=== PATIENT | female | born 1995 | race Caucasian/White ===

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

== ENCOUNTER 2017-04-08 14:20 | Emergency (ER) | payer OTHER ==
[~2017-04-08] VITALS: Ht 170.1 cm; Wt 63.5 kg
[2017-04-08 14:46] LABS: BILIRUBIN NEGATIVE (NEGATIVE); BLOOD 1+ (NEGATIVE); CLARITY SL CLOUDY (CLEAR); COLOR YELLOW (YELLOW); GLUCOSE NEGATIVE (NEGATIVE); KETONE NEGATIVE (NEGATIVE); LEUKO ESTERASE 1+ (NEGATIVE); NITRITE POSITIVE (NEGATIVE); PROTEIN TRACE (NEGATIVE)
[2017-04-08 14:58] LABS: WBC 31-40 wbc/hpf (0-5)
[2017-04-08 14:59] LABS: BACTERIA 2+; URINE REFLEX COMMENT YES (NO)
[2017-04-08] MEDS ORDERED: PYRIDIUM100 MG PO (15:01)
[2017-04-08] MEDS ORDERED: MACROBID100 M1 PO (15:01)
== END 2017-04-08 15:15 | disposition home or self-care (01) ==
LOC: ED 14:20
PROVIDERS: Physician Assistant
DX: N30.01 Acute cystitis with hematuria (principal); F17.200 Nicotine dependence, unspecified, uncomplicated

== ENCOUNTER → 2017-04-22 | Day surgery (SDC) | payer OTHER ==
[2017-04-19 12:01] LABS: BASO % 0.3 % (0.0-1.0); EOS % 0.3 % (1.0-4.0); HEMATOCRIT 41.5 % (37.0-47.0); HEMOGLOBIN 13.6 g/dl (12.0-16.0); IG # 0.1 10*3/uL (0.0-0.1); LYMPH # 2.2 10*3/uL (1.3-4.4); LYMPH % 20.7 % (27.0-41.0); MEAN CELL VOLUME 90.2 fl (81.0-99.0); MEAN CORPUSCULAR HGB 29.6 pg (27.0-31.0); MEAN CORPUSCULAR HGB CONC 32.8 g/dl (33.0-37.0); MEAN PLATELET VOLUME 9.7 fl (9.6-12.3); MONO # 0.7 10*3/uL (0.1-1.0); MONO % 6.4 % (3.0-9.0); NEUT # 7.5 10*3/uL (2.3-7.9); NEUT % 71.7 % (47.0-73.0); PLATELET COUNT AUTOMATED 321 10*3/uL (130-400); RED CELL DISTRI WIDTH 12.2 % (0-14.5); WHITE BLOOD COUNT 10.5 10*3/uL (4.8-10.8)
[2017-04-19 12:11] LABS: BUN 13 mg/dl (7-24); CARBON DIOXIDE 27 mmol/L (21-32); CHLORIDE 108 mmol/L (98-107); EST GLOM FILT AFRICAN AMERICAN > 60 ml/min; GLUCOSE 83 mg/dL (65-99); POTASSIUM 4.4 mmol/L (3.5-5.1); SODIUM 140 mmol/L (136-145)
[~2017-04-22] VITALS: Ht 170.1 cm; Wt 63.5 kg
[~2017-04-22] MED LIST changes: +MACROBID100 M1 PO; +PYRIDIUM100 MG PO
--- NOTE | ~2017-04-22 | PROC NOTE ---
[place], [place] PROCEDURE NOTE NAME: ALMA ARNOLD UNIT #: [id number] ROOM: DOCTOR: ELVER PINEDA MD BIRTHDATE: [birth year] DOS: 04/22/2017 PREOPERATIVE DIAGNOSES: Scalp, right shoulder, chest wall x 2 skin lesions. POSTOPERATIVE DIAGNOSES: Scalp, right shoulder, chest wall x 2 skin lesions. PROCEDURE: Excision of scalp right shoulder, chest wall x 2 skin lesions. SURGEON: Elver Pineda M.D. POWER PRESS OPERATOR: PGY1. ANESTHESIA: MAC with local (1% lidocaine with epinephrine). INDICATIONS: This is a 21-year-old female who has got multiple skin lesions and scalp lesion that she desires excision of, who is here for the above-mentioned procedure. The procedure and its complications were explained to the patient in detail and she agreed to proceed. DESCRIPTION OF PROCEDURE: After identifying the patient, the patient was brought to the operating suite and laid in the supine position. After IV sedation was administered, a timeout procedure was called. It was decided to proceed with the scalp lesion first, the parts were painted and draped in the usual sterile fashion and an elliptical incision was marked and local anesthesia was infiltrated. The lesion was excised in its entirety and sent for histopathological diagnosis. Thereafter, hemostasis was achieved and confirmed and the skin edges were approximated with the help of 4-0 Vicryl in a subcuticular fashion. The right shoulder lesion was then tackled. Local anesthesia was infiltrated in an elliptical fashion and the incision was made and the lesion was excised in its entirety and sent for histopathological diagnosis. Hemostasis was achieved and the skin edges were then approximated with the help of 4-0 Vicryl in a subcuticular running fashion. Both the chest wall lesions also removed similar to the right shoulder lesions and these lesions were then sent for histopathological diagnosis. Dressing was placed on all the 4 lesions and the patient was brought back to the recovery room in stable fashion. Dr. Elver Pineda, the attending surgeon, was present throughout the operating case. There were no complications. [place], [place] PROCEDURE NOTE NAME: ALMA ARNOLD UNIT #: [id number] ROOM: DOCTOR: ELVER PINEDA MD BIRTHDATE: [birth year] Elver Pineda MD CM:YRN:PROCEDURE NOTE [id number] ELVER PINEDA MD
[2017-04-22 09:45] VITALS: BP 116/73
[2017-04-22 10:16] VITALS: BP 116/73
== END | disposition home or self-care (01) ==
LOC: SDC 04-19 10:15
PROVIDERS: Surgery
DX: D22.4 Melanocytic nevi of scalp and neck (principal); D22.5 Melanocytic nevi of trunk; F41.0 Panic disorder [episodic paroxysmal anxiety]; Z82.49 Family history of ischemic heart disease and other diseases of the circulatory system; Z83.3 Family history of diabetes mellitus; F17.210 Nicotine dependence, cigarettes, uncomplicated

== ENCOUNTER → 2017-08-27 | Day surgery (SDC) | payer OTHER ==
[~2017-08-27] VITALS: Ht 170.1 cm; Wt 71.2 kg
[~2017-08-27] MED LIST changes: +NORCO 5-325 TA1 EACH PO
--- NOTE | ~2017-08-27 | PROC NOTE ---
[place], [place] PROCEDURE NOTE NAME: ALMA ARNOLD [facility] #: [id number] UNIT #: [id number] ROOM: DOCTOR: ELVER PINEDA MD BIRTHDATE: [birth year] DOS: 08/27/2017 PREOPERATIVE DIAGNOSES: Back skin lesions x 2, left sided neck skin lesion x 1. POSTOPERATIVE DIAGNOSES: Back skin lesions x 2, left sided neck skin lesion x 1. PROCEDURE: Excision of back and neck skin lesions. SURGEON: Elver Pineda MD APPLICATIONS SALES CONSULTANT: RICHARD. ANESTHESIA: Local. INDICATIONS: This is a 22-year-old lady who has had multiple skin lesions removed in the past who is here for removal of 3 skin lesions as mentioned above. The procedure and its complications were explained to the patient in detail. Complications that were discussed included but were not limited to, bleeding, infection and prolonged pain. She agreed to proceed. DESCRIPTION OF PROCEDURE: After identifying the patient, the patient was brought to the operating suite and laid in a right lateral position. It was decided to proceed with a back lesions first. After the parts were painted and draped in the usual sterile fashion, timeout procedure was called. An incision was marked with the help of marking pen. Local anesthesia (1% plain lidocaine) was injected in an elliptical fashion. An incision was made with the help of #15 blade and it was excised in its entirety and sent for histopathological diagnosis. Hemostasis was achieved and the skin edges were approximated with the help of 4-0 Vicryl in a subcuticular running fashion. Thereafter, the neck was prepped and draped and similar excision was performed for the neck lesion and sent for histopathological diagnosis. After the skin was closed, dressing was applied and the patient was brought back to the recovery room in stable fashion. There were no complications. Dr. Elver Pineda, the attending surgeon, was present throughout the operating case. Elver Pineda MD CM:PROCNOTE:PROCEDURE NOTE [id number] [id number] ELVER PINEDA MD
[2017-08-27 09:20] VITALS: BP 114/81
[2017-08-27 11:25] VITALS: BP 96/59
[2017-08-27 11:40] VITALS: BP 121/81
[2017-08-27 11:55] VITALS: BP 106/73
== END | disposition home or self-care (01) ==
LOC: SDC 08-25 12:30
DX: D22.4 Melanocytic nevi of scalp and neck (principal); D22.5 Melanocytic nevi of trunk; F17.210 Nicotine dependence, cigarettes, uncomplicated; Z98.890 Other specified postprocedural states; Z79.899 Other long term (current) drug therapy; F41.0 Panic disorder [episodic paroxysmal anxiety]

== ENCOUNTER 2018-02-02 07:24 | Emergency (ER) | payer OTHER ==
[~2018-02-02] VITALS: Ht 170.1 cm; Wt 68.5 kg
[2018-02-02] MEDS ORDERED: ANTIBIOTIC (07:36)
[2018-02-02 08:57] LABS: BASO % 0.3 % (0.0-1.0); EOS # 0.1 10*3/uL (0.0-0.4); EOS % 0.7 % (1.0-4.0); HEMATOCRIT 42.1 % (37.0-47.0); HEMOGLOBIN 13.8 g/dl (12.0-16.0); LYMPH % 28.4 % (27.0-41.0); MEAN CELL VOLUME 91.1 fl (81.0-99.0); MEAN CORPUSCULAR HGB 29.9 pg (27.0-31.0); MEAN CORPUSCULAR HGB CONC 32.8 g/dl (33.0-37.0); MEAN PLATELET VOLUME 9.4 fl (9.6-12.3); MONO # 0.8 10*3/uL (0.1-1.0); MONO % 7.1 % (3.0-9.0); NEUT # 6.8 10*3/uL (2.3-7.9); NEUT % 63.2 % (47.0-73.0); PLATELET COUNT AUTOMATED 317 10*3/uL (130-400); RED BLOOD COUNT 4.62 10*6/uL (4.10-5.10); WHITE BLOOD COUNT 10.7 10*3/uL (4.8-10.8)
[2018-02-02 09:16] LABS: ALBUMIN 3.8 gm/dl (3.1-4.5); ALKALINE PHOSPHATASE 79 U/L (45-117); BUN 10 mg/dl (7-24); CHLORIDE 106 mmol/L (98-107); CREATININE 0.74 mg/dL (0.55-1.02); POTASSIUM 3.7 mmol/L (3.5-5.1); SGOT/AST 12 IU/L (3-35); SGPT/ALT 23 U/L (12-78); SODIUM 139 mmol/L (136-145); TOTAL PROTEIN 7.7 gm/dL (6.4-8.2)
[2018-02-02 09:30] LABS: BILIRUBIN NEGATIVE (NEGATIVE); BLOOD NEGATIVE (NEGATIVE); CLARITY CLEAR (CLEAR); COLOR YELLOW (YELLOW); GLUCOSE NEGATIVE (NEGATIVE); KETONE NEGATIVE (NEGATIVE); LEUKO ESTERASE NEGATIVE (NEGATIVE); NITRITE NEGATIVE (NEGATIVE); SPECIFIC GRAVITY 1.025 (1.005-1.030); UROBILINOGEN 0.2 E.U./dl (0.2-1.0)
[2018-02-02 09:41] LABS: CALCIUM OXALATE CRYSTALS 1+
== END 2018-02-02 12:53 | disposition short-term general hospital (02) ==
LOC: ED 07:24
PROVIDERS: Emergency Medicine
DX: N73.9 Female pelvic inflammatory disease, unspecified (principal); R30.0 Dysuria

== ENCOUNTER 2018-04-09 07:15 | Emergency (ER) | payer SELFPAY ==
[~2018-04-09] VITALS: Ht 170.1 cm; Wt 68.0 kg
[~2018-04-09 07:15] MED LIST changes: +ANTIBIOTIC
[2018-04-09 07:41] LABS: BASO % 0.1 % (0.0-1.0); EOS % 0.2 % (1.0-4.0); HEMOGLOBIN 13.9 g/dl (12.0-16.0); LYMPH # 2.5 10*3/uL (1.3-4.4); LYMPH % 14.5 % (27.0-41.0); MEAN CELL VOLUME 90.9 fl (81.0-99.0); MEAN CORPUSCULAR HGB 29.4 pg (27.0-31.0); MEAN CORPUSCULAR HGB CONC 32.3 g/dl (33.0-37.0); MEAN PLATELET VOLUME 9.2 fl (9.6-12.3); MONO # 0.9 10*3/uL (0.1-1.0); MONO % 5.1 % (3.0-9.0); NEUT # 13.7 10*3/uL (2.3-7.9); NEUT % 79.8 % (47.0-73.0); PLATELET COUNT AUTOMATED 331 10*3/uL (130-400); RED BLOOD COUNT 4.73 10*6/uL (4.10-5.10); WHITE BLOOD COUNT 17.2 10*3/uL (4.8-10.8)
[2018-04-09 07:46] LABS: BILIRUBIN NEGATIVE (NEGATIVE); BLOOD NEGATIVE (NEGATIVE); CLARITY SL CLOUDY (CLEAR); COLOR YELLOW (YELLOW); GLUCOSE NEGATIVE (NEGATIVE); KETONE TRACE (NEGATIVE); LEUKO ESTERASE TRACE (NEGATIVE); NITRITE POSITIVE (NEGATIVE); PH 6.5 (5.0-9.0); SPECIFIC GRAVITY 1.025 (1.005-1.030); UROBILINOGEN 0.2 E.U./dl (0.2-1.0)
[2018-04-09 07:53] LABS: BACTERIA 4+
[2018-04-09 07:56] LABS: ALBUMIN 4.2 gm/dl (3.1-4.5); ALKALINE PHOSPHATASE 76 U/L (45-117); BUN 13 mg/dl (7-24); CHLORIDE 106 mmol/L (98-107); CREATININE 0.82 mg/dL (0.55-1.02); POTASSIUM 3.8 mmol/L (3.5-5.1); SGOT/AST 13 IU/L (3-35); SGPT/ALT 21 U/L (12-78); SODIUM 140 mmol/L (136-145); TOTAL PROTEIN 8.6 gm/dL (6.4-8.2)
[2018-04-09] MEDS ORDERED: VIBRAMYCIN100 MG PO (09:01)
[2018-04-09] MEDS ORDERED: LEVOFLOXACIN500 MG PO (09:01)
[2018-04-09] MEDS ORDERED: Motrin,Rufen800 MG PO (09:03)
== END 2018-04-09 09:35 | disposition home or self-care (01) ==
LOC: ED 07:15
PROVIDERS: Emergency Medicine
DX: N73.9 Female pelvic inflammatory disease, unspecified (principal)

== ENCOUNTER 2018-08-24 15:48 | Emergency (ER) | payer SELFPAY ==
[~2018-08-24] VITALS: Wt 63.5 kg
[~2018-08-24 15:48] MED LIST changes: +LEVOFLOXACIN500 MG PO; +Motrin,Rufen800 MG PO
[2018-08-24] MEDS ORDERED: IBUPROFEN600 MG PO (16:23)
[2018-08-24] MEDS ORDERED: AMOXICILLIN500 M2 PO (16:23)
== END 2018-08-24 17:22 | disposition home or self-care (01) ==
LOC: ED 15:48
DX: K08.89 Other specified disorders of teeth and supporting structures (principal)

== ENCOUNTER 2020-07-31 07:41 | Emergency (ER) | payer SELFPAY ==
[~2020-07-31] VITALS: Ht 167.6 cm; Wt 63.5 kg
[~2020-07-31 07:41] MED LIST changes: +IBUPROFEN600 MG PO
[2020-07-31] MEDS ORDERED: ZITHROMAX250 MG PO (09:18)
== END 2020-07-31 09:33 | disposition home or self-care (01) ==
LOC: ED 07:41
DX: J40 Bronchitis, not specified as acute or chronic (principal); J02.9 Acute pharyngitis, unspecified; Z79.899 Other long term (current) drug therapy

== ENCOUNTER 2021-10-10 21:01 | Emergency (ER) | payer SELFPAY ==
[~2021-10-10] VITALS: Ht 160 cm; Wt 61.2 kg
[~2021-10-10 21:01] MED LIST changes: +ZITHROMAX250 MG PO
[2021-10-10] MEDS ORDERED: NAPROXEN250 MG PO (21:56)
== END 2021-10-10 22:08 | disposition home or self-care (01) ==
LOC: ED 21:01
DX: S93.402A Sprain of unspecified ligament of left ankle, initial encounter (principal); W18.39XA Other fall on same level, initial encounter; Y93.89 Activity, other specified; Y92.89 Other specified places as the place of occurrence of the external cause; Y99.8 Other external cause status

== ENCOUNTER 2022-12-15 08:23 | Emergency (ER) | payer SELFPAY ==
[~2022-12-15] VITALS: Wt 72.6 kg
[~2022-12-15 08:23] MED LIST changes: +NAPROXEN250 MG PO
[2022-12-15] MEDS ORDERED: Motrin,Rufen800 MG PO (09:08)
[2022-12-15] MEDS ORDERED: CLEOCIN HCL150 MG PO (09:08)
== END 2022-12-15 09:29 | disposition home or self-care (01) ==
LOC: ED 08:23
DX: K04.7 Periapical abscess without sinus (principal)

== ENCOUNTER → 2023-12-10 | Outpatient (CLI) | payer MEDICAID ==
[~2023-12-10] MED LIST changes: +CLEOCIN HCL150 MG PO
== END | disposition home or self-care (01) ==
LOC: LAB 09:12
PROVIDERS: ATTEND Nurse Practitioner Women's Health
DX: Z34.02 Encounter for supervision of normal first pregnancy, second trimester (principal); R73.02 Impaired glucose tolerance (oral); Z3A.00 Weeks of gestation of pregnancy not specified

== ENCOUNTER 2024-12-02 12:46 | Emergency (ER) | payer MEDICAID ==
[~2024-12-02] VITALS: Ht 170.1 cm; Wt 59.0 kg
[2024-12-02] MEDS ORDERED: AMOX-CLAV 875-1 EACH PO (13:03)
[2024-12-02] MEDS ORDERED: Amoxicillin/Clavulanate Pota 875 MG TAB PO ONE (13:05)
== END 2024-12-02 13:16 | disposition home or self-care (01) ==
LOC: ED 12:46
DX: K02.9 Dental caries, unspecified (principal); R22.0 Localized swelling, mass and lump, head; Z98.890 Other specified postprocedural states

== ENCOUNTER 2025-01-30 21:48 | Emergency (ER) | payer MEDICAID ==
[~2025-01-30] VITALS: Ht 170.1 cm; Wt 59.0 kg
[~2025-01-30 21:48] MED LIST changes: +AMOX-CLAV 875-1 EACH PO
[2025-01-30] MEDS ORDERED: SERTRALINE HYDR50 MG PO (22:37)
[2025-01-30] MEDS ORDERED: HYDROXYZINE PAM50 MG PO (22:37)
[2025-01-30] MEDS ORDERED: OLANZAPINE5 MG PO (22:37)
== END 2025-01-30 22:59 | disposition home or self-care (01) ==
LOC: ED 21:48
DX: F91.9 Conduct disorder, unspecified (principal); F32.A Depression, unspecified; F41.9 Anxiety disorder, unspecified; Z79.899 Other long term (current) drug therapy; Z98.890 Other specified postprocedural states